=== PATIENT | female | born 1965 | race Hispanic/Latino ===

== ENCOUNTER 2017-02-12 08:41 | Emergency (ER) | payer SELFPAY ==
[2017-02-12] MEDS ORDERED: Acetaminophen 500 MG TAB ONE (09:30)
== END 2017-02-12 09:35 | disposition home or self-care (01) ==
LOC: ERS 08:41
DX: J06.9 Acute upper respiratory infection, unspecified (principal); F32.9 Major depressive disorder, single episode, unspecified
CPT/HCPCS: 87804; 99283